=== PATIENT | male | born 1985 | race Two or more races ===

== ENCOUNTER → 2019-03-10 | Outpatient (CLI) | payer BC ==
[2019-03-10 20:27] LABS: C Reactive Protein <0.4 mg/dL (0.0-0.8); Rheumatoid Factor, Qnt <4 IU/mL (0-15); Uric Acid 6.6 mg/dL (3.7-8.7)
[2019-03-10 21:09] LABS: Cyclic Citrull Pep IgG Unit 0.9 U/mL; Cyclic Citrullinated Pep IgG NEGATIVE (NEGATIVE)
[2019-03-10 22:04] LABS: Streptolysin O Ab(ASO) 94 IU/mL (0-200)
[2019-03-12 12:29] LABS: HLA B27 NEGATIVE
== END | disposition home or self-care (01) ==
LOC: LABWHC1 11:41
PROVIDERS: ATTEND Family Medicine
DX: M25.50 Pain in unspecified joint (principal)
CPT/HCPCS: 36415; 84550; 85652; 86038; 86060; 86140; 86200; 86431; 86618; 86812

== ENCOUNTER → 2023-05-10 | Outpatient (CLI) | payer BC ==
--- NOTE | 2023-05-10 21:23 | MR ---
EXAMINATION TYPE: MR brain wo con DATE OF EXAM: 05/10/2023 5:35 PM CLINICAL INDICATION:Male, 38 years old with history of G45.9 TRANSIENT CEREBRAL ISCHEMIC ATTACK, UNSP ECIF; PHH, Possible TIA COMPARISON: Same day MRA. TECHNIQUE: Multi planar, multi sequence imaging was performed through the brain including: T1, T2, In version recovery, Diffusion weighted imaging, and gradient echo imaging. No gadolinium was given. FINDINGS: The rivera-white junctions, ventricular system, basal cisterns appear unremarkable. Midline structures show no abnormality. Diffusion-weighted imaging shows no evidence of restricted diffusion. The suscep tibility weighted images do not reveal any evidence for micro-hemorrhage. The bone marrow signal is within normal limits. Paranasal sinuses and mastoid air cells: Mild scattered paranasal sinus disease. Visualized orbits: Orbital contents are intact. IMPRESSION: No evidence of intracranial mass or acute/subacute infarct.
--- NOTE | 2023-05-10 21:49 | MR ---
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 IV Contrast: None cc Findings: Vertebral arteries: The vertebral arteries are patent. Vertebral arteries are: Left dominant. Basilar artery: The basilar artery is intact. The basilar artery bifurcation is normal. Internal Carotid arteries: The cervical, petrous, cavernous and supraclinoid segments are normal. RADHA: Patent with no evidence of aneurysm. ACOM: Present without evidence of aneurysm. MCA: Patent with no evidence of aneurysm. ROTARY DRIER FEEDER: Patent with no evidence of aneurysm. PCOM: Hypoplastic bilaterally. IMPRESSION: No evidence of aneurysm or significant stenosis.
== END | disposition home or self-care (01) ==
LOC: RADMRIMAIN 16:02
PROVIDERS: ATTEND Surgery
DX: G45.9 Transient cerebral ischemic attack, unspecified (principal); H53.9 Unspecified visual disturbance
CPT/HCPCS: 70544; 70551

== ENCOUNTER 2023-05-25 10:48 | Day surgery (SDC) | payer BC ==
[2023-05-22 12:35] VITALS: BMI 34.2
[2023-05-25] MEDS: SODIUM CHLORIDE 0.9% 500 ML 500 ML IV ONE (11:16)
[2023-05-25 11:29] VITALS: TEMP 98.3
[2023-05-25] MEDS ORDERED: fentaNYL (PF) 50 MCG/ML 2 ML AMP ONE (12:41)
[2023-05-25] MEDS: BENZOCAINE SPRAY 1 CAN TOPICAL ONE (13:00)
[2023-05-25 13:02] VITALS: RESP 16
[2023-05-25] MEDS: MIDAZOLAM 2 MG/2 ML VIAL IVP ONE ×2 (13:14→13:15)
[2023-05-25] MEDS: fentaNYL (PF) 50 MCG/1 ML VIAL IVP ONE (13:14)
[2023-05-25 15:07] VITALS: BP 136/63; PULSE 92
--- NOTE | 2023-05-26 19:42 | P.PCN ---
Date of Procedure: 05/26/23 Operative Findings: TRANSESOPHAGEAL ECHOCARDIOGRAM CATH LAB MANAGER: RIA GALLOWAY MD, RPVI INDICATION: Rule out cardiac source of embolization SEDATION: Conscious sedation COMPLICATION: None LEVEL OF SEDATION Moderate sedation was 12 minutes PROCEDURE DESCRIPTION: After obtaining an informed consent, the patient was brought to transesophageal echocardiogram room. Pulse oximetry and heart monitors were attached to the patient. The patient throat was sprayed using lidocaine. The patient was turned into left lateral position. After that a bite guard was placed. After an appropriate conscious sedation was initiated, the transesophageal echocardiogram was advanced through a bite guard into the mid esophagus. A 2-D echocardiogram images, color Doppler images, continuous wave images, pulse-wave images, of various cardiac structure were performed. After that the transesophageal echocardiogram probe was advanced into the stomach and fixed to obtain transgastric view was. The probe was brought into the mid esophagus. Inter-atrial septum was interrogated using 2D images, color Doppler images, and then contrast study. After that transesophageal echocardiogram was withdrawn out and upon withdrawing the descending thoracic aorta all the way up to the arch was evaluated. CONCLUSION: 1. Normal LV systolic function with an ejection fraction of 50-55% 2. No evidence of cardiac source of embolization. Intact interatrial septum 3. Dilated right atrium and right ventricle 4. Normal intracardiac valves 5. No evidence of pericardial effusion
== END 2023-05-25 14:48 | disposition home or self-care (01) ==
LOC: CATHCVL 10:48
PROVIDERS: ATTEND Internal Medicine Interventional Cardiology
DX: I51.7 Cardiomegaly (principal); I10 Essential (primary) hypertension; G47.33 Obstructive sleep apnea (adult) (pediatric); Z79.82 Long term (current) use of aspirin; Z79.899 Other long term (current) drug therapy
CPT/HCPCS: 93312; 93320; 93325; J2250; J3010

== ENCOUNTER → 2023-07-11 | Outpatient (CLI) | payer BC ==
[2023-07-11 15:11] VITALS: BP 129/76; PULSE 74; RESP 16; TEMP 98.2
--- NOTE | 2023-07-11 15:47 | P.SLEEP ---
History of Present Illness DATE: 07/11/2023 CONSULTATION/NEW PATIENT EVALUATION HISTORY OF PRESENT ILLNESS/SLEEP-WAKE EVALUATION: 38-year-old gentleman had been evaluated in the sleep center for possible obstructive sleep apnea hypopnea syndrome. SLEEP SCHEDULE: Usually sleep schedule from 8 PM to 4 AM on weekdays and from 11 PM to 10 AM on weekend. FALLING ASLEEP: No problems with falling asleep. DURING SLEEP: Patient snores and wakes up from sleep up to 3 times. Significant amount of jerking movements during the sleep, restless leg symptoms. No history of hypnogogical hallucinations, sleep paralysis, or cataplexy. DURING THE DAY/WAKE STATE: In the morning patient wake up tired, has difficulties to pay attention. [place] sleepiness scale is 5. Sometimes patient take 1 nap at 2 PM. PAST MEDICAL HISTORY: Hypertension, increasing right side of the heard by echocardiogram. PAST SURGICAL HISTORY: None. MEDICATIONS: Lipitor 20 mg once a day, aspirin 81 mg once a day, losartanhydrochlorothiazide 50-12.5 mg once a day. SOCIAL HISTORY: Negative for smoking, alcohol consumption occasional. FAMILY HISTORY: Hypertension, stroke, sleep apnea, diabetes, thyroid problems, restless legs. REVIEW OF SYSTEMS: Snoring, multiple awakenings from sleep, leg movements at night. No fevers. No double vision. No recent chest pain. No shortness of breath. No abdominal pain. No bleeding episodes. No blood in urine. No seizure episodes. PHYSICAL EXAMINATION: GENERAL: A pleasant patient without any distress. VITAL SIGNS: Please see below mass index 34.3. HEENT: PERRLA, EOMI. Evaluation of oropharynx showed tongue protrudes midline, low position of soft palate Mallampati 4. NECK: Supple. No JVD. Thyroid is not palpable. 16-3/4 inches in circumference. LUNGS: Clear to percussion and to auscultation. Good air exchange. No wheezing or rhonchi. HEART: S1, S2 regular. No murmurs, gallops or rubs. ABDOMEN: Soft and nontender. Bowel sounds are present. No organomegaly appreciated. EXTREMITIES: No clubbing or cyanosis. DIRECTOR OF HEAD START: Awake, alert, and oriented x3. Cranial nerves 2 to 7 intact. There is no fasciculation or atrophy noted. No focal deficits observed. ASSESSMENT: 1. Snoring, multiple awakenings from sleep, extremely low position of soft palate Mallampati 4. Obstructive sleep apnea hypopnea syndrome. 2. Restless leg symptoms. 3. Significant amount of jerking movements of legs during the night, possible periodic limb movements. 4. Mild obesity, BMI 34.3. 5 history of increasing right side of the heart by echocardiogram. 6 . Hypertension. 7. Hyperlipidemia. 8. History of cardiac arrhythmia. PLAN: 1. Home sleep apnea test for evaluation of patient's breathing during sleep. 2. Following plan after reading sleep study. 3. Preferable position during sleep on the side. 4. No driving if patient feels any sleepiness. Patient is aware of civil and criminal liability for unsafe driving. 5. Sleep hygiene with regular sleep time for at least 7.5-8 hours. 6. Watching weight. Thank you very much for referring this patient for consultation. Sincerely, Ian Akhtar MD, PhD, FAASM. Diplomat of [place] [employer], Sleep Medicine Board by [place] [employer] [place] [employer] Computer Operations Manager of [facility] [place] Past Medical History Past Medical History: Chest Pain / Angina, Hyperlipidemia, Hypertension, Rheumatoid Arthritis (RA), Sleep Apnea/CPAP/BIPAP Additional Past Medical History / Comment(s): Per , "They're watching an irregular heartbeat." "They're ruling out TIA and heart attack.", currently having testing for sleep apnea. History of Any Multi-Drug Resistant Organisms: None Reported Additional Past Surgical History / Comment(s): teeth extracted. BERNICE with Bubble Study Past Anesthesia/Blood Transfusion Reactions: No Reported Reaction, Motion Sickness Past Psychological History: Depression Smoking Status: Never smoker Past Alcohol Use History: Occasional Past Drug Use History: None Reported - Past Family History Mother Family Medical History: CVA/TIA, Deep Vein Thrombosis (DVT) Medications and Allergies Home Medications Medication Instructions Recorded Confirmed Type Aspirin [Adult Low Dose Aspirin EC] 81 mg PO QAM 05/22/23 05/25/23 History Atorvastatin [Lipitor] 20 mg PO HS 05/22/23 05/25/23 History Losartan/Hydrochlorothiazide 1 tab PO QAM 05/22/23 05/25/23 History [Losartan-Hctz 50-12.5 mg Tab] Multivitamin [Multivitamins Adult 1 each PO QAM 05/22/23 05/25/23 History Gummies] Allergies Allergy/AdvReac Type Severity Reaction Status Date / Time No Known Allergies Allergy Verified 05/25/23 11:09 Physical Exam Vitals: Vital Signs Temp Pulse Resp BP Pulse Ox 07/11/23 14:48 98.2 F 74 16 129/76 99 Sleep Note - Sleep Data ESS Total: 5 - Sleep Note Sleep Note: Temperature: 98.2 F Pulse Rate: 74 Respiratory Rate: 16 Blood Pressure: 129/76 SpO2: 99 Height: Weight: BMI: Neck Circumference: 16.7
== END ==
LOC: 3 N SLEEP 14:25
PROVIDERS: ATTEND Internal Medicine
DX: G47.33 Obstructive sleep apnea (adult) (pediatric) (principal); G25.81 Restless legs syndrome; E66.9 Obesity, unspecified; I10 Essential (primary) hypertension; E78.5 Hyperlipidemia, unspecified; Z68.34 Body mass index [BMI] 34.0-34.9, adult; Z86.79 Personal history of other diseases of the circulatory system; Z79.899 Other long term (current) drug therapy
CPT/HCPCS: 99211

== ENCOUNTER → 2023-07-24 | Outpatient (CLI) | payer BC ==
--- NOTE | 2023-07-25 13:17 | P.PCN ---
Description of Procedure: CLINICAL: A home sleep apnea test has been done for confirmation of possible obstructive sleep apnea-hypopnea syndrome. DESCRIPTION OF PROCEDURE: RESULTS: Recording time was 8 hours 43 minutes. Evaluation time was 8 hours 31 minutes. Evaluation time is sufficient for making conclusion about results of the test. Raw data of sleep recording has been reviewed and is adequate. Respiratory channel showed 5 apneas and 31 hypopneas. Apnea-hypopnea index was 4.2 per hour. Pulse rate in the range between minimum 47, maximum 112, average 61 by computer calculation. Lowest desaturation was 87%. IMPRESSION: 1. Very minimal abnormalities of respiration, normal range by present criteria, although home sleep apnea test may underestimate severity of sleep apnea. 2. Mild snoring have been documented. Please see other impressions from consultation. PLAN: 1. I will see patient for follow-up visit to explain results of the test and following plan. 2. Sleep hygiene with regular time in bed for at least 8 hours. 3. Watching and losing weight. 4. No driving if feeling any sleepiness. Thank you very much for allowing me to participate in the management of your patient. Sincerely, Ian Akhtar MD, PhD, FAASM Diplomat of [place] [employer] Sleep Medicine Board of [place] [employer] Services Librarian of [facility] [place]
== END ==
LOC: 3 N SLEEP 17:16
PROVIDERS: ATTEND Internal Medicine
DX: G47.30 Sleep apnea, unspecified (principal); R06.83 Snoring

== ENCOUNTER → 2023-08-15 | Outpatient (CLI) | payer BC ==
[2023-08-15 13:42] VITALS: BP 130/79; PULSE 69; RESP 16; TEMP 98.3
--- NOTE | 2023-08-15 13:54 | P.PN ---
Subjective DATE: 08/15/2023 FOLLOW UP VISIT. Patient returned to sleep center for follow-up visit to discuss results of home sleep apnea test. I discussed results of home sleep apnea test with patient and his in details. Apnea hypopnea index is 4.2, which is in normal range. Snoring have been documented. [place] sleepiness scale is 3, which is normal. MEDICATIONS:1. Losartan/hydrochlorothiazide 50-12.5 mg once a day 2. Lipitor 20 mg once a day 3. Aspirin 81 mg once a day During physical exam: GENERAL: A pleasant patient without any distress. VITAL SIGNS: Please see below. HEENT: PERRLA, EOMI. NECK: Supple. No JVD. LUNGS: Clear to percussion and to auscultation. Good air exchange. No wheezing or rhonchi. HEART: S1, S2 regular. ABDOMEN: Soft and nontender. EXTREMITIES: No clubbing or cyanosis. RADIATION CONTROL HEALTH PHYSICIST: Awake, alert, and oriented x3. No focal deficit. Impressions: 1. Snoring have been documented during the home sleep apnea test. 2. No significant respiratory abnormalities by home sleep apnea test, but according to patient probably has episodes of sleep apnea's. Possibly false negative results of home sleep apnea test. 3. Hypertension. 4. Mild obesity. 5. Hyperlipidemia. 6. Increasing right side of the heart according to echocardiogram. Plan: 1. Repeat home sleep apnea test. 2. Sleep hygiene with regular time in bed for at least 8 hours. 3. Following plan after reading sleep study 4. Precautions related to driving. No driving if feel any sleepiness. Patient is aware about civil and criminal liability for unsafe driving, promised to follow recommendations. Thank you very much for allowing me to participate in the management of your patient. Ian Akhtar MD, PhD, FAASM. Diplomat of [place] [employer], Sleep Medicine Board by [place] [employer] Reimbursement Analyst of [facility] [place] Objective - Vital Signs Vital signs: Vital Signs Temp 98.3 F 08/15/23 13:22 Pulse 69 08/15/23 13:22 Resp 16 08/15/23 13:22 BP 130/79 08/15/23 13:22 Pulse Ox 99 08/15/23 13:22 FiO2 Intake & Output 08/14/23 08/15/23 08/15/23 18:59 06:59 18:59 Weight 111.584 kg
== END ==
LOC: 3 N SLEEP 13:05
PROVIDERS: ATTEND Internal Medicine
DX: R06.83 Snoring (principal); I10 Essential (primary) hypertension; E66.9 Obesity, unspecified; E78.5 Hyperlipidemia, unspecified; I51.7 Cardiomegaly; Z79.899 Other long term (current) drug therapy; Z68.34 Body mass index [BMI] 34.0-34.9, adult
CPT/HCPCS: 99212

== ENCOUNTER → 2023-08-21 | Outpatient (CLI) | payer BC ==
--- NOTE | 2023-08-23 15:23 | P.PCN ---
Description of Procedure: CLINICAL: A home sleep apnea test has been done for confirmation of possible obstructive sleep apnea-hypopnea syndrome. DESCRIPTION OF PROCEDURE: RESULTS: Recording time was 7 hours 50 minutes. Evaluation time was 7 hours 38 minutes. Evaluation time is sufficient for making conclusion about results of the test. Raw data of sleep recording has been reviewed and is adequate. Respiratory channel showed 4 apneas and 9 hypopneas. Apnea-hypopnea index was 1.7 per hour. Pulse rate in the range between minimum 49, maximum 105, average 63 by computer calculation. Lowest desaturation was 88%. IMPRESSION: 1. No significant respiratory abnormalities have been documented during the home sleep apnea test, normal oxygenation during sleep. 2. Few snoring episodes have been documented. Please see other impressions from consultation. PLAN: 1. Sleep hygiene with regular time in bed for at least 8 hours. 2. I will see patient for follow-up visit to explain results of the tests 3. Watching and losing weight. 4. No driving if feeling any sleepiness. Thank you very much for allowing me to participate in the management of your patient. Sincerely, Ian Akhtar MD, PhD, FAASM Diplomat of [employer] [place] [employer] Sleep Medicine Board of [employer] [place] [employer] of [employer] Medicine Health Care Liaison of [facility] [place]
== END ==
LOC: 3 N SLEEP 16:04
PROVIDERS: ATTEND Internal Medicine
DX: G47.33 Obstructive sleep apnea (adult) (pediatric) (principal)